=== PATIENT | female | born 1950 | race Caucasian/White ===

== ENCOUNTER 2017-04-08 14:34 | Emergency (ER) | payer MEDICARE, OTHER ==
[2017-04-08] MEDS ORDERED: NS 0.9% 1000 ML* 1,000 ML IV SCH (19:00)
--- NOTE | 2017-04-08 19:23 | RAD ---
Indication: Chest pain, shortness of breath for a few weeks with worsening. History of bronchitis. History of RIGHT breast carcinoma. Comparison: August 28, 2016 radiographs. November 22, [address] Technique: Upright AP 1858 hours Report: Large body habitus limits image quality. Ill-defined alveolar consolidation at the RIGHT lung base new compared with the August 28, 2016 exam without associated volume loss. Grossly clear pleural spaces. Negative for pneumothorax. Upper normal heart size. Unremarkable central pulmonary vasculature and mediastinal contours. IMPRESSION: The constellation of findings is concerning for pneumonia at the RIGHT lung base. Radiographic follow-up after therapy suggested to assess for resolution.
[2017-04-08 19:32] LABS: Hematocrit 38 % (35-47); Mean Corpuscular HGB Conc 32 g/dl (31-36); Mean Corpuscular Hemoglobin 27 pg (27-31); Mean Corpuscular Volume 84 fL (80-97); Mean Platelet Volume 9 um3 (7.4-10.4); Red Blood Count 4.54 10^6/ul (4.0-5.4); Red Cell Distribution Width 15 % (10.5-15); White Blood Count 9.3 10^3/ul (3.5-10.8)
[2017-04-08 19:52] LABS: Albumin 3.7 g/dL (3.2-5.2); BUN/Creatinine Ratio 16.9 (8-20); C Reactive Protein 11.88 mg/L (< 5.00); Calcium 9.4 mg/dL (8.6-10.3); EGFR African American 88.5 (>60); EGFR Non-African American 68.8 (>60); Globulin 3.5 g/dL (2-4); Magnesium 2.1 mg/dL (1.9-2.7); Potassium 3.7 mmol/L (3.5-5.0); Total Bilirubin 0.9 mg/dL (0.2-1.0); Total Protein 7.2 g/dL (6.4-8.9)
[2017-04-08 19:55] LABS: Troponin I 0.03 ng/mL (<0.04)
[2017-04-08 20:23] LABS: TSH (Thyroid Stimulating Horm) 0.76 mcIU/mL (0.34-5.60)
--- NOTE | 2017-04-08 20:38 | ED ---
Naida Taylor Matthew, scribed for Louie Hollis MD on 04/08/17 at 1955 . Shortness of Breath - HPI Summary HPI Summary: A 66 y/o female presents to the ED with intermittent SOB since several weeks ago. The SOB is worse with exertion and lying down. The patient went to her dentist today and her BP was noted at 187/98. She then went to her PCP who recommended she presents to the ED. She denies fevers. Hx of HTN. - History of Current Complaint Chief Complaint: EDShortnessOfBreath Time Seen by Provider: 04/08/17 19:50 Hx Obtained From: Patient Onset/Duration: Lasting Weeks, Still Present Timing: Intermittent Episodes Lasting: - w/ exertion or lying flat Current Severity: Mild Dyspnea At: Exertion Aggrevating Factors: Movement Associated Signs & Symptoms: Negative - Allergy/Home Medications Allergies/Adverse Reactions: Allergies Allergy/AdvReac Type Severity Reaction Status Date / Time Ampicillin Allergy Rash Verified 09/13/15 06:44 PMH/Surg Hx/FS Hx/Imm Hx Endocrine/Hematology History: Denies: Hx Diabetes Cardiovascular History: Reports: Hx Hypertension Denies: Hx Pacemaker/ICD History: Denies: Hx Renal Disease Musculoskeletal History: Denies: Hx Osteoporosis Sensory History: Denies: Hx Hearing Aid Psychiatric History: Denies: Hx Panic Disorder - Cancer History Cancer Type, Location and Year: BREAST Hx Chemotherapy: Yes Hx Radiation Therapy: Yes - Surgical History Surgery Procedure, Year, and Place: RT LUMPECTOMY Infectious Disease History: No Infectious Disease History: Denies: Traveled Outside the [place] in Last 30 Days - Family History Family History: FHx of breast CA - aunts - Social History Alcohol Use: None Substance Use Type: Reports: None Smoking Status (MU): Never Smoked Tobacco Review of Systems Constitutional: Negative Negative: Fever Eyes: Negative ENT: Negative Cardiovascular: Other - elevated blood pressure Positive: Shortness Of Breath Gastrointestinal: Negative Genitourinary: Negative Musculoskeletal: Negative Skin: Negative Neurological: Negative Psychological: Normal All Other Systems Reviewed And Are Negative: Yes Physical Exam Vital Signs On Initial Exam: Initial Vitals Temp Pulse Resp BP Pulse Ox 98.1 F 91 24 184/85 98 04/08/17 14:36 04/08/17 14:36 04/08/17 14:36 04/08/17 14:36 04/08/17 14:36 - [place] Coma Scale Coma Scale Total: 15 Diagnostics - Vital Signs Vital Signs Temp Pulse Resp BP Pulse Ox 04/08/17 18:30 164/67 04/08/17 18:00 146/71 04/08/17 17:30 173/72 04/08/17 17:10 19 182/75 04/08/17 17:09 98.8 F 81 16 182/75 95 04/08/17 17:08 9 04/08/17 16:17 98.5 F 80 20 185/91 98 04/08/17 14:36 98.1 F 91 24 184/85 98 - Laboratory Lab Results: Lab Results 04/08/17 04/08/17 04/08/17 Range/Units 19:20 19:20 19:20 WBC 9.3 (3.5-10.8) 10^3/ul RBC 4.54 (4.0-5.4) 10^6/ul Hgb 12.0 (12.0-16.0) g/dl Hct 38 (35-47) % MCV 84 (80-97) fL MCH 27 (27-31) pg MCHC 32 (31-36) g/dl RDW 15 (10.5-15) % Plt Count 209 (150-450) 10^3/ul MPV 9 (7.4-10.4) um3 Neut % (Auto) 69.8 (38-83) % Lymph % (Auto) 22.0 L (25-47) % [place] % (Auto) 5.7 (1-9) % Eos % (Auto) 1.3 (0-6) % Baso % (Auto) 1.2 (0-2) % Absolute Neuts (auto) 6.5 (1.5-7.7) 10^3/ul Absolute Lymphs (auto) 2.0 (1.0-4.8) 10^3/ul Absolute Monos (auto) 0.5 (0-0.8) 10^3/ul Absolute Eos (auto) 0.1 (0-0.6) 10^3/ul Absolute Basos (auto) 0.1 (0-0.2) 10^3/ul Absolute Nucleated RBC 0 10^3/ul Nucleated RBC % 0 INR (Anticoag Therapy) 0.97 (0.89-1.11) APTT 31.2 (26.0-36.3) seconds D-Dimer, Quantitative < 200 (Less Than 230) ng/mL Lactic Acid 1.3 (0.5-2.0) mmol/L Result Diagrams: 04/08/17 19:20 04/08/17 19:20 Lab Statement: Any lab studies that have been ordered have been reviewed, and results considered in the medical decision making process. - Radiology CXR Xray Interpretation: Positive (See Comments) - IMPRESSION: The constellation of findings is concerning for pneumonia at the RIGHT lung base. Radiographic follow -up after therapy suggested to assess for resolution. Radiology Interpretation Completed By: Radiologist The documentation as recorded by the Naida hendrix Matthew accurately reflects the service I personally performed and the decisions made by , Louie Hollis MD.
[2017-04-08 21:09] LABS: Urine Bacteria Absent (Absent); Urine Bilirubin Negative (Negative); Urine Glucose Negative (Negative); Urine Nitrite Negative (Negative)
[2017-04-08 22:33] VITALS: BP 190/87
== END 2017-04-08 22:47 | disposition home or self-care (01) ==
LOC: ED 14:34
DX: R06.02 Shortness of breath (principal); I10 Essential (primary) hypertension
CPT/HCPCS: 36415; 71010; 80053; 81003; 81015; 82550; 82553; 83605; 83690; 83735; 83880; 84443; 84484; 85025; 85379; 85610; 85730; 86140; 87086; 93005; 96360; 99283

== ENCOUNTER 2019-10-01 11:56 | Emergency (ER) | payer MEDICARE, BC ==
--- OUTSIDE RECORDS SUMMARY | 2019-10-01 12:07 | XMS REPORT | Continuity of Care Document ---
:1950 External Reference #:[id number] Author Name Nini Neal DNP, RN, COMB WINDER-BC (transmitted by agent of provider Izzy Andrews) Address [address], [address] [place] [id number] Care Team Providers Name Role Phone Rosanne Lund MD - Hematology & Care Team Information Normalizer Oncology Zina Penn F.N.P. 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 Onset: 08/10/2018 Social History Type Date Description Comments Sex Unknown Tobacco Use Start: Unknown Never Smoked Cigarettes Smoking Status Reviewed: 02/23/19 Never Smoked Cigarettes ETOH Use Denies alcohol use Tobacco Use Start: Unknown Patient has never smoked Recreational Drug Use Denies Drug Use Exercise Type/Frequency Does not exercise Allergies, Adverse Reactions, Alerts Active Allergies Reaction Severity Comments Date Lisinopril Anhydrous cough 05/07/2017 Myrbetriq 05/07/2017 Levaquin 05/07/2017 Ampicillin 05/07/2017 Gabapentin Adverse; balance, speech eff. 06/18/2018 Medications Active Medications SIG Qnty Indications Ordering Date Provider Meclizine HCL 1 cap by mouth Unknown 12.5mg every 6 hours at Tablets bedtime as needed Melatonin 1 tab by mouth at Unknown 10mg Capsules bedtime as needed Azithromycin 1 by mouth 1 hour Unknown 500mg Tablets prior to dental work Biotin 1 by mouth every Unknown day Klor-Con 10 1 by mouth every Unknown 10Meq Tablets day ER Acetaminophen ER 1 by mouth daily Unknown 650mg Tablets ER Calcium 600+D3 500Iu 1 tablet po twice Unknown daily Magnesium 1 by mouth every Unknown 250mg Tablets day Hydrocortisone Valerate apply once a day Unknown as needed 0.2% Cream Triamcinolone Acetonide apply thin film Unknown twice daily as 0.1% Cream needed Clindamycin Phosphate apply twice daily Unknown 1% to affected areas Gel as needed Nystatin topical twice a Unknown [id number]/GM day as needed Powder Polyethylene Glycol mix 17gm with 8 Unknown 3350 ounces of fluids Powder once daily Hyoscyamine Sulfate 1 tab every 6 hrs Unknown 0.125mg when necessary for Tablets pain Sulfacetamide Sodium twice daily Unknown 10% Suspension Amoxicillin 4 Tabs 1 HR Prior Unknown 500mg Tablets To Dental Appt Loratadine 1 by mouth every Unknown 10mg Tablets day Omeprazole 1 tablet by mouth Unknown 20mg Capsules DR every day Aspir-81 (Enteric coated)[address] by mouth every day Anastrozole 1 by mouth every Unknown 1mg Tablets day Amlodipine Besylate bid Unknown 2.5mg Tablets Losartan 1 by mouth every Unknown Potassium/Hydrochloroth day iazide 100-25 Tablets Alprazolam bid prn (usually Unknown 0.5mg Tablets 1/2 tab at hs) Atenolol bid Unknown 25mg Tablets Immunizations CPT Code Status Date Vaccine Lot # [id number] Given 09/09/2016 Pneumonia Vaccine [id number] Given 09/09/2016 Influenza Virus 3Yrs & Over Vital Signs Date Vital Result Comment 08/17/2019 10:49am Height 62 inches 5'2" Weight 202.00 lb Heart Rate 68 /min BP Systolic Sitting 140 mmHg Lue large cuff BP Diastolic Sitting 82 mmHg Lue large cuff Respiratory Rate 16 /min O2 % BldC Oximetry 97 % BMI (Body Mass Index) 36.9 kg/m2 02/23/2019 3:32pm Height 62 inches 5'2" Weight 206.25 lb Heart Rate 78 /min BP Systolic Sitting 152 mmHg BP Diastolic Sitting 96 mmHg BP Systolic Standing 152 mmHg BP Diastolic Standing 94 mmHg BMI (Body Mass Index) 37.7 kg/m2 Ejection Fraction 55-60% 06/10/17 Echo Results Test Date Facility Test Result H/L Range Note Basic Metabolic 05/18/2019 [facility] Sodium 138 mmol/L Normal 135-[address] [place] [address] [phone] Potassium 3.2 mmol/L Low 3.5-5.0 Chloride 101 mmol/L Normal 101-111 Co2 Carbon Dioxide 30 mmol/L Normal 22-32 Anion Gap 7 mmol/L Normal 2-11 Glucose 167 mg/dL High 70-100 Blood Urea Nitrogen 21 mg/dL Normal 6-24 Creatinine 0.81 mg/dL Normal 0.51-0.95 BUN/Creatinine Ratio 25.9 High 8-20 Calcium 9.5 mg/dL Normal 8.6-10.3 Egfr Non- 70.3 >60 Egfr 85.1 >60 1 1 Because ethnic data is not always readily available, this report includes an eGFR for both -Americans and non- Americans. The National Kidney Disease Education Program (NKDEP) does not endorse the use of the MDRD equation for patients that are not between the ages of 18 and 70, are , have extremes of body size, muscle mass, or nutritional status, or are non- or non-. According to the National Kidney Foundation, irrespective of diagnosis, the stage of the disease is based on the level of kidney function: Stage Description GFR(mL/min/1.73 m(2)) 1 Kidney damage with normal or decreased GFR 90 2 Kidney damage with mild decrease in GFR 60-89 3 Moderate decrease in GFR 30-59 4 Severe decrease in GFR 15-29 5 Kidney failure <15 (or dialysis) Procedures Date Code Description Status 03/02/2019 10348 ECHO Transthoracic, Real-Time 2D With Doppler And Color Completed Flow 03/02/2019 38149 ECHO Transthoracic, Real-Time 2D With Doppler And Color Completed Flow 02/23/2019 03094 EKG Tracing & Interpretation Completed Medical Devices Description No Information Available Encounters Type Date Location Provider Dx Diagnosis Office Visit 08/17/2019 [facility] And Nini Neal, G47.33 Obstructive sleep 11:00a [facility] RN, [facility] apnea (adult) 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 03/02/2019 R06.02 Shortness of breath [facility] E[facility] Schedule 03/02/2019 G47.33 Obstructive sleep apnea (adult) [facility]CHO Schedule (pediatric) 03/02/2019 I34.0 Nonrheumatic mitral (valve) Juarez Awan M.D. insufficiency 03/02/2019 I34.0 Nonrheumatic mitral (valve) [facility] E[facility] Schedule insufficiency 03/02/2019 I10 Essential (primary) hypertension [facility] E[facility] Schedule 03/02/2019 I36.1 Nonrheumatic tricuspid (valve) [facility] Schedule insufficiency 03/02/2019 R94.31 Abnormal electrocardiogram [ECG] [EKG] [facility] Schedule 02/23/2019 G47.33 Obstructive sleep apnea (adult) Juarez Awan M.D. (pediatric) 02/23/2019 I34.0 Nonrheumatic mitral (valve) Juarez Awan M.D. insufficiency 02/23/2019 I10 Essential (primary) hypertension Juarez Awan M.D. 02/23/2019 I36.1 Nonrheumatic tricuspid (valve) Juarez Awan M.D. insufficiency 02/23/2019 R06.02 Shortness of breath Juarez Awan M.D. 02/23/2019 R94.31 Abnormal electrocardiogram [ECG] [EKG] Juarez Awan M.D. Plan of Treatment Future Appointment(s):12/20/2019 9:30 am - Bill [facility] M[facility] at [facility]08/17/2019 - Nini Neal DNP, RN, COMB WINDER-BCG47.33 Obstructive sleep apnea (adult) (pediatric)Recommendations:Continue PAP device, Benefitting and compliant with treatment. Cleaning Wipe off mask daily (baby wipe-no scent, or warm water) Clean mask, tubing, filter, and water chamber weekly in mild no scent dish soap and water. Hang to dry. If you have any sleepiness while driving you MUST avoid operating a vehicle or machinery. If you have difficulty with your equipment, or need to replace your mask or hoses, please contact your homecare agency. A weight change of 20 pounds or more may have an effect onyour equipment; if you are experiencing problems please call for an appointment. Avoid weight gain If you have any further questions, please call the [facility] at [phone]. Functional Status Description No Information Available Mental Status Description No Information Available Referrals Description No Information Available
[2019-10-01 13:22] LABS: ABS Basophils 0.1 10^3/ul (0-0.2); ABS Eosinophils 0.1 10^3/ul (0-0.6); ABS Lymphocytes 1.3 10^3/ul (1.0-4.8); ABS Monocytes 0.5 10^3/ul (0-0.8); ABS Neutrophils 5.2 10^3/ul (1.5-7.7); Eosinophil % 1.8 %; Hematocrit 40 % (35-47); Lymphocyte % 17.9 %; Mean Corpuscular HGB Conc 32 g/dL (31-36); Mean Corpuscular Hemoglobin 27 pg (27-31); Mean Corpuscular Volume 84 fL (80-97); Mean Platelet Volume 8.9 fL (7.4-10.4); Platelet Count 198 10^3/uL (150-450); Red Blood Count 4.79 10^6 /uL (3.70-4.87); Red Cell Distribution Width 15 % (10-15); White Blood Count 7.1 10^3/uL (3.5-10.8)
[2019-10-01 13:37] LABS: Albumin 3.9 g/dL (3.2-5.2); Albumin/Globulin Ratio 1.1 (1-3); BUN/Creatinine Ratio 24.4 (8-20); Calcium 9.5 mg/dL (8.6-10.3); EGFR African American 88.9 (>60); EGFR Non-African American 73.4 (>60); Globulin 3.6 g/dL (2-4); Potassium 3.6 mmol/L (3.5-5.0); Total Bilirubin 0.7 mg/dL (0.2-1.0); Total Protein 7.5 g/dL (6.4-8.9)
[2019-10-01 13:39] LABS: Troponin I 0.01 ng/mL (<0.04)
--- NOTE | 2019-10-01 15:26 | ED ---
Shortness of Breath - HPI Summary HPI Summary: 68 year old female presents to [facility] with a chief complaint of shortness of breath starting a month ago. She reports a constant shortness of breath even at rest. SOB exacerbated by exertion. Stting upright relieves it. Patient reports leg swelling starting a month ago. She was recently on a 12 hour car ride, during which she wore compression socks. She denies pain, coughing, nausea, vomiting, diarrhea, or chest pain. Her PCP cut her water pill dosage in half about a month ago. Patient reports receiving a normal EKG earlier this year. Patient has a history of pneumonia. No history of asthma or COPD. Patient does not smoke tobacco. Medications reviewed. Allergies noted. - History of Current Complaint Chief Complaint: EDShortnessOfBreath Time Seen by Provider: 10/01/19 15:12 Hx Obtained From: Patient Onset/Duration: Gradual Onset, Lasting Weeks, Still Present Timing: Constant Current Severity: Mild Dyspnea At: Exertion Alleviating Factors: Upright Position Associated Signs & Symptoms: Calf Pain/Swelling - Allergy/Home Medications Allergies/Adverse Reactions: Allergies Allergy/AdvReac Type Severity Reaction Status Date / Time mirabegron Allergy See Comment Verified 10/01/19 11:59 ampicillin AdvReac Rash Verified 10/01/19 11:59 levofloxacin AdvReac Joint Pain Verified 10/01/19 11:59 lisinopril AdvReac Coughing Verified 10/01/19 11:59 Home Medications: Home Medications Acetaminophen [Tylenol Extra Strength] 500 mg PO Q6HR PRN 10/01/19 [History Confirmed 10/01/19] Azithromycin 500 mg PO ONCE 10/01/19 [History Confirmed 10/01/19] Biotin 10,000 mcg PO DAILY 10/01/19 [History Confirmed 10/01/19] Calcium Carbonate/Vitamin D3 [Calcium 600 + Vit D Tablet] 1 each PO BID [History Confirmed 10/01/19] Clindamycin Phosphate [Clindamycin Phosphate 1% GEL] 1 applic TOPICAL DAILY 12/19 [History Confirmed 10/01/19] Hydrocortisone Valerate 1 applic TOPICAL DAILY 10/01/19 [History Confirmed 10/01] LoraTADine TAB(NF) [Claritin 10 MG TAB(NF)] 10 mg PO DAILY 10/01/19 [History Confirmed 10/01/19] Magnesium Oxide TAB* [MagOx 400 TAB*] 250 mg PO DAILY 10/01/19 [History Confirmed 10/01/19] Meclizine TAB* [Antivert 12.5 TAB*] 12.5 mg PO Q6HR 10/01/19 [History Confirmed 10/01/19] Melatonin (NF) 1 tab PO BEDTIME PRN 10/01/19 [History Confirmed 10/01/19] Potassium Chloride [Klor-Con 10] 10 meq PO BID 10/01/19 [History Confirmed 10/01] PMH/Surg Hx/FS Hx/Imm Hx Endocrine/Hematology History: Denies: Hx Diabetes Cardiovascular History: Reports: Hx Hypertension Denies: Hx Pacemaker/ICD Respiratory History: Reports: Other Respiratory Problems/Disorders - PNEUMONIA EARLY MARCH 2017 History: Denies: Hx Dialysis, Hx Renal Disease Musculoskeletal History: Denies: Hx Osteoporosis Sensory History: Denies: Hx Hearing Aid Psychiatric History: Denies: Hx Panic Disorder - Cancer History Cancer Type, Location and Year: BREAST - Rt Hx Chemotherapy: Yes Hx Radiation Therapy: Yes - Surgical History Surgery Procedure, Year, and Place: RT BREAST LUMPECTOMY. EYES - as a child - MUSCLE Infectious Disease History: No Infectious Disease History: Denies: Traveled Outside the [place] in Last 30 Days - Family History Known Family History: Positive: None Family History: FHx of breast CA - aunts - Social History Alcohol Use: None Substance Use Type: Reports: None Smoking Status (MU): Never Smoked Tobacco Review of Systems Negative: Fever Negative: Chest Pain Positive: Shortness Of Breath. Negative: Cough Negative: Vomiting, Diarrhea, Nausea Positive: Edema - bilateral legs All Other Systems Reviewed And Are Negative: Yes Physical Exam - Summary Physical Exam Summary: Constitutional: Well-developed, Well-nourished, Alert. (-) Distressed Skin: Warm, Dry HENT: Normocephalic; Atraumatic Eyes: Conjunctiva normal Neck: Musculoskeletal ROM normal neck. (-) JVD, (-) Stridor, (-) Tracheal deviation Cardio: Rhythm regular, rate normal, Heart sounds normal; Intact distal pulses; Radial pulses are 2+ and symmetric. (-) Murmur Pulmonary/Chest wall: Effort normal. (-) Respiratory distress, (-) Wheezes, (-) Rales Abd: Soft, (-) tenderness, (-) Distension, (-) Guarding, (-) Rebound Musculoskeletal: 1+ pulse edema. Lymph: (-) Cervical adenopathy Neuro: Alert, Oriented x3 Psych: Mood and affect Normal Triage Information Reviewed: Yes Vital Signs On Initial Exam: Initial Vitals Temp Pulse Resp BP Pulse Ox 97.8 F 86 20 179/88 98 10/01/19 11:59 10/01/19 11:59 10/01/19 11:59 10/01/19 11:59 10/01/19 11:59 Vital Signs Reviewed: Yes Procedures - Sedation Patient Received Moderate/Deep Sedation with Procedure: No Diagnostics - Vital Signs Vital Signs Temp Pulse Resp BP Pulse Ox 10/01/19 14:19 98.6 F 66 16 157/70 97 10/01/19 11:59 97.8 F 86 20 179/88 98 - Laboratory Lab Results: Lab Results 10/01/19 10/01/19 10/01/19 Range/Units 13:01 13:01 13:01 WBC 7.1 (3.5-10.8) 10^3/uL RBC 4.79 (3.70-4.87) 10^6 /uL Hgb 13.0 (12.0-16.0) g/dL Hct 40 (35-47) % MCV 84 (80-97) fL MCH 27 (27-31) pg MCHC 32 (31-36) g/dL RDW 15 (10-15) % Plt Count 198 (150-450) 10^3/uL MPV 8.9 (7.4-10.4) fL Neut % (Auto) 73.1 % Lymph % (Auto) 17.9 % [place] % (Auto) 6.5 % Eos % (Auto) 1.8 % Baso % (Auto) 0.7 % Absolute Neuts (auto) 5.2 (1.5-7.7) 10^3/ul Absolute Lymphs (auto) 1.3 (1.0-4.8) 10^3/ul Absolute Monos (auto) 0.5 (0-0.8) 10^3/ul Absolute Eos (auto) 0.1 (0-0.6) 10^3/ul Absolute Basos (auto) 0.1 (0-0.2) 10^3/ul Absolute Nucleated RBC 0.0 10^3/ul Nucleated RBC % 0.0 Sodium 141 (135-145) mmol/L Potassium 3.6 (3.5-5.0) mmol/L Chloride 106 (101-111) mmol/L Carbon Dioxide 29 (22-32) mmol/L Anion Gap 6 (2-11) mmol/L BUN 19 (6-24) mg/dL Creatinine 0.78 (0.51-0.95) mg/dL Est GFR ( Amer) 88.9 (>60) Est GFR (Non-Af Amer) 73.4 (>60) BUN/Creatinine Ratio 24.4 H (8-20) Glucose 110 H (70-100) mg/dL Calcium 9.5 (8.6-10.3) mg/dL Total Bilirubin 0.70 (0.2-1.0) mg/dL AST 20 (13-39) U/L ALT 26 (7-52) U/L Alkaline Phosphatase 102 (34-104) U/L Troponin I 0.01 (<0.04) ng/mL B-Natriuretic Peptide 99 (<=100) pg/mL Total Protein 7.5 (6.4-8.9) g/dL Albumin 3.9 (3.2-5.2) g/dL Globulin 3.6 (2-4) g/dL Albumin/Globulin Ratio 1.1 (1-3) Result Diagrams: 10/01/19 13:01 10/01/19 13:01 Lab Statement: Any lab studies that have been ordered have been reviewed, and results considered in the medical decision making process. - Radiology CXR Radiology Interpretation Completed By: Radiologist Summary of Radiographic Findings: MILD DIFFUSE INTERSTITIAL OPACIFICATION SIMILAR TO PREVIOUS EXAMINATION SUGGESTIVE OF CHRONIC INTERSTITIAL LUNG DISEASE VERSUS RECURRENT MILD PULMONARY INTERSTITIAL EDEMA. AN ED PHYSICIAN HAS REVIEWED THIS REPORT. - EKG 1226 Cardiac Rate: NL - 73 bpm EKG Rhythm: Sinus Rhythm Summary of EKG Findings: EKG at 1226 shows NSR at 73 bpm. No LVH criteria. Course/Dx - Course Course Of Treatment: Patient is here with 1 month of shortness of breath. Patient does have 1+ pitting edema which started after she had her diuretic decreased. Patient had a normal BNP, kidney function, EKG. Patient does have some interstitial fibrosis probably from her prior radiation. Patient did not have crackles on my exam. Patient was encouraged use compression stockings and had her medication increased to her prior dose. Patient was encouraged to do this for the next couple of days and follow up with her PCP for medication adjustment. - Diagnoses Provider Diagnoses: Shortness of breath Discharge ED - Sign-Out/Discharge Documenting (check all that apply): Patient Departure - discharge - Discharge Plan Condition: Stable Disposition: HOME Patient Education Materials: Shortness of Breath (ED) Referrals: Zina Penn NP [Primary Care Provider] - Additional Instructions: Follow up with your primary care provider in 2-3 days and ask about switching medications and potassium water pills. Return to the emergency department if you feel chest pain or severe shortness of breath. - Billing Disposition and Condition Condition: STABLE Disposition: Home - Attestation Statements Document Initiated by Micah: Yes Documenting Scribe: Hammad Deluca Provider For Whom Micah is Documenting (Include Credential): Melquiades Weldon MD Scribe Attestation: Hammad Taylor, scribed for Melquiades Weldon MD on 10/01/19 at 2033. Scribe Documentation Reviewed: Yes Provider Attestation: The documentation as recorded by the Hammad hendrix accurately reflects the service I personally performed and the decisions made by , Melquiades Weldon MD Status of Scribe Document: Viewed
[2019-10-01 15:39] VITALS: BP 184/69
== END 2019-10-01 15:40 | disposition home or self-care (01) ==
LOC: ED 11:56
DX: R06.02 Shortness of breath (principal); I10 Essential (primary) hypertension; Z79.899 Other long term (current) drug therapy; Z88.1 Allergy status to other antibiotic agents; Z88.0 Allergy status to penicillin; Z88.8 Allergy status to other drugs, medicaments and biological substances
CPT/HCPCS: 36415; 71046; 80053; 83880; 84484; 85025; 93005; 99282